=== PATIENT | female | born 1990 | race Caucasian/White ===

== ENCOUNTER 2017-10-08 05:54 | Day surgery (SDC) | payer OTHER ==
[2017-10-08] MEDS ORDERED: ONDANSETRON 4 MG INJ (07:52)
[2017-10-08] MEDS ORDERED: METOCLOPRAMIDE 10 MG INJ (07:52)
[2017-10-08] MEDS ORDERED: KETOROLAC 30 MG INJ (07:52)
[2017-10-08] MEDS ORDERED: MIDAZOLAM 1 MG/ML 2 ML INJ (07:52)
[2017-10-08] MEDS ORDERED: PROPOFOL 20 ML (07:52)
[2017-10-08] MEDS ORDERED: LACTATED RINGER'S 1,000 ML IV* (08:00)
[2017-10-08] MEDS ORDERED: CEFAZOLIN 1 GM INJ (08:04)
[2017-10-08] MEDS ORDERED: FENTAnyl 50 MCG/ML VIAL (08:20)
[2017-10-08] MEDS ORDERED: BUPIVACAINE 0.5% (SDV) 30 ML INJ (08:20)
[2017-10-08] MEDS: BUPIVACAINE 0.5% (SDV) 30 ML INJ (08:22)
[2017-10-08] MEDS: POLYMYXIN/BACITRACIN 1L IRRIG (08:22)
== END 2017-10-08 11:45 | disposition home or self-care (01) ==
LOC: SDS 05:54
DX: T84.84XA Pain due to internal orthopedic prosthetic devices, implants and grafts, initial encounter (principal); Y83.8 Other surgical procedures as the cause of abnormal reaction of the patient, or of later complication, without mention of misadventure at the time of the procedure; M65.4 Radial styloid tenosynovitis [de Quervain]; M19.032 Primary osteoarthritis, left wrist
CPT/HCPCS: 20680; 73100-52